=== PATIENT | male | born 1970 | race Caucasian/White ===

== ENCOUNTER 2021-09-02 04:28 | Day surgery (SDC) | payer OTHER ==
[2021-08-17 14:58] VITALS: BMI 19.7
[2021-09-02] MEDS ORDERED: IOHEXOL 180 MG/1 ML ML IJ ONE ×2 (10:38→12:21)
[2021-09-02] MEDS ORDERED: LIDOCAINE HCL 1% PRESERVATIVE FREE - 30ML VIAL IJ ONE (10:38)
[2021-09-02] MEDS ORDERED: DEXAMETHASONE SOD PHOSPHATE 10 MG/1 ML VIAL IVPUSH ONE ×2 (10:39→12:23)
[2021-09-02] MEDS ORDERED: SODIUM CHLORIDE 0.9% P/F 10 ML VIAL IJ ONE (12:11)
[2021-09-02] MEDS ORDERED: LIDOCAINE 1% P/F 10 MG/ML VIAL INF ONE (12:17)
[2021-09-02 14:06] VITALS: BP 113/63; PULSE 60; TEMP 98.2
== END 2021-09-02 13:05 | disposition home or self-care (01) ==
LOC: JASU-SURG 04:28
PROVIDERS: ATTEND Pain Medicine Pain Medicine
PROC: 3E0R33Z Introduction of Anti-inflammatory into Spinal Canal, Percutaneous Approach (ICD-10-PCS; 2021-09-02)
PROC: 3E0R3BZ Introduction of Anesthetic Agent into Spinal Canal, Percutaneous Approach (ICD-10-PCS; principal; 2021-09-02 13:00)
DX: M54.16 Radiculopathy, lumbar region (principal)
CPT/HCPCS: 76000-TC-FY; J1100

== ENCOUNTER 2021-10-13 03:16 | Emergency (ER) | payer OTHER ==
[2021-10-13 03:29] VITALS: BP 104/62; PULSE 107; TEMP 99.3; BMI 19.7
[2021-10-13] MEDS ORDERED: KETOROLAC TROMETHAMINE 60 MG/2 ML VIAL IM ONE (03:34)
[2021-10-13] MEDS ORDERED: KETOROLAC TROMETHAMINE 60 MG/2 ML VIAL ONE (03:36)
== END 2021-10-13 06:35 | disposition home or self-care (01) ==
LOC: FER 03:16
PROC: 3E0233Z Introduction of Anti-inflammatory into Muscle, Percutaneous Approach (ICD-10-PCS; principal; 2021-10-13)
DX: M54.50 Low back pain, unspecified (principal)
CPT/HCPCS: 96372; 99284-25

== ENCOUNTER 2024-11-20 13:54 | Emergency (ER) | payer OTHER ==
[2024-11-20 14:13] VITALS: BP 122/75; PULSE 71; RESP 18; TEMP 98.4; BMI 27.8
[2024-11-20] MEDS: FLUORESCEIN NA 1 EA STRIP OD ONE (14:39)
[2024-11-20] MEDS: TETRACAINE 0.5% HCL 0.6ML DROPPER.BOTTLE OU ONE (14:39)
== END 2024-11-20 15:29 | disposition home or self-care (01) ==
LOC: JER 13:54
DX: S05.02XA Injury of conjunctiva and corneal abrasion without foreign body, left eye, initial encounter (principal); W26.8XXA Contact with other sharp object(s), not elsewhere classified, initial encounter
CPT/HCPCS: 99283-25